=== PATIENT | male | born 2000 | race Caucasian/White ===

== ENCOUNTER 2020-08-12 05:38 | Emergency (ER) | payer OTHER ==
[2020-08-12] MEDS ORDERED: Mag-Al Plus 1200 MG/1200 MG/120 MG/30 ML UDCUP ONE (06:16)
[2020-08-12] MEDS ORDERED: Lidocaine Viscous Sol 2% 15 ml UD Cup ONE (06:16)
[2020-08-12 06:21] LABS: #Basophils 0.1 thou/uL (0.0-0.2); #Lymphocytes 2.7 thou/uL (1.20-3.40); #Monocytes 0.7 thou/uL (0.11-0.59); #Neutrophils 3.5 thou/uL (1.40-6.50); %Basophils 0.7 % (0.0-1.0); %Eosinophils 0.7 % (0.0-10.0); %Lymphocytes 38.9 % (21.0-51.0); %Monocytes 9.5 % (0.0-10.0); %Neutrophils 50.2 % (42.0-75.0); Hemoglobin 16.5 g/dL (14.0-18.0); Mean Corpuscular HGB CONC 33.2 g/dL (32.0-36.0); Mean Corpuscular Hemoglobin 32.1 pg (27.0-31.0); Mean Corpuscular Volume 96.5 fL (78.0-98.0); Platelet Count 206 thou/uL (130-400); RBC Distribution Width 11.6 % (11.5-14.5); Red Blood Cell (RBC) Count 5.15 mill/uL (4.70-6.10)
[2020-08-12 06:42] LABS: ALT (SGPT) 14 U/L (8-55); AST (SGOT) 16 U/L (5-34); Albumin 4.5 g/dL (3.5-5.0); Alkaline Phosphatase 63 U/L (40-110); Anion Gap 14 mmol/L (10-20); BUN (Urea Nitrogen) 9 mg/dL (8.9-20.6); Bilirubin, Total 0.7 mg/dL (0.2-1.2); Calc. Creatinine Clearance 0 mL/min (70-130); Calcium 9.7 mg/dL (7.8-10.44); Carbon Dioxide 25 mmol/L (22-29); Chloride 104 mmol/L (98-107); Estimated GFR-MDRD Greater than 90; Globulin 2.6 g/dL (2.4-3.5); Glucose 93 mg/dL (70-105); Lipase 17 U/L (8-78); Potassium 3.8 mmol/L (3.5-5.1); Protein, Total 7.1 g/dL (6.0-8.3); Sodium 139 mmol/L (136-145)
== END 2020-08-12 07:10 ==
LOC: NAV ERS 05:38
DX: K29.70 Gastritis, unspecified, without bleeding (principal); G40.909 Epilepsy, unspecified, not intractable, without status epilepticus; J45.909 Unspecified asthma, uncomplicated; F32.9 Major depressive disorder, single episode, unspecified; F91.3 Oppositional defiant disorder
CPT/HCPCS: 36415; 80053; 83690; 84484; 85025; 93005